=== PATIENT | male | born 1980 | race Caucasian/White ===

== ENCOUNTER 2018-02-16 19:09 | Inpatient (IN) ==
[2018-02-16] MEDS ORDERED: Morphine Sulfate Inj 8 MG/ML Vial IV.PUSH ONE (21:23)
[2018-02-16] MEDS ORDERED: Morphine Sulfate Inj 2 MG/ML Vial IV.PUSH ONE (21:47)
--- NOTE | 2018-02-16 22:44 | ED ---
HPI General Chief complaint: Abdominal Pain Stated complaint: side pain Time Seen by Provider: 02/16/18 20:36 History of Present Illness HPI narrative: Patient is a 38-year-old male presents emergency department for evaluation of epigastric pain, has a history of recurrent pancreatitis, he states he had a few beers as well as a shot a couple of days ago. States it feels very similar to his pancreatitis and is requesting pain medicine. He does endorse some nausea and nonbloody nonbilious emesis at home. States symptoms are moderate, for the past 24 hours, rapidly worsening, associated signs symptoms in context as above. Related Data Home Medications Medication Instructions Recorded Confirmed No Known Home Medications 02/16/18 02/16/18 Allergies Allergy/AdvReac Type Severity Reaction Status Date / Time No Known Allergies Allergy Unverified 02/16/18 21:23 Review of Systems ROS: all other systems reviewed are negative [facility] Family History Family History Other Hypertension Social History Social History Substance History: No History of Abuse Second Hand Smoke Exposure: Yes Smoking Status: Current every day smoker Tobacco Type: Cigarettes How Often Do You Have a Drink Containing Alcohol: Monthly or less Recent [facility] within the Last 8 Weeks: No Recent Out of Country Travel within the Last 8 Weeks: No Exam Narrative Exam Narrative: GENERAL: Well-developed well-nourished, no obvious distress. SKIN: Focused skin assessment warm/dry. HEAD: Atraumatic. Normocephalic. EYES: Pupils equal and round. No scleral icterus. No injection or drainage. ENT: No nasal bleeding or discharge. Mucous membranes pink and moist. NECK: Trachea midline. No JVD. CARDIOVASCULAR: Regular rate and rhythm. No murmur appreciated. RESPIRATORY: No accessory muscle use. Clear to auscultation. Breath sounds equal bilaterally. GASTROINTESTINAL: Abdomen soft, mildly tender throughout all 4 quadrants, worse in the epigastric region, no rebound no percussive tenderness. Negative table bump sign, nondistended. Hepatic and splenic margins not palpable. MUSCULOSKELETAL: No obvious deformities. No clubbing. No cyanosis. No edema. NEUROLOGICAL: Awake and alert. No obvious cranial nerve deficits. Motor grossly within normal limits. Normal speech. PSYCHIATRIC: Appropriate mood and affect; insight and judgment normal. Course Initial Documented Vital Signs Temperature 99.2 F 02/16/18 19:49 Pulse Rate 78 10/01/18 19:49 Respiratory Rate 16 02/16/18 19:49 Blood Pressure 159/94 H 02/16/18 19:49 Pulse Oximetry 98 02/16/18 19:49 Last Documented Vital Signs Temperature 98.8 F 02/19/18 12:00 Pulse Rate 97 H 02/19/18 12:00 Respiratory Rate 20 02/19/18 12:00 Blood Pressure 136/93 H 02/19/18 12:00 Pulse Oximetry 95 02/19/18 12:00 Sign Out Sign Out Data: Patient Sign Out occurred on 02/16/18 at 23:08. Patient's care was discussed, and care was transferred from Maldonado Novak MD to Jenae Box MD. Sign Out Comment: Patient with a history of pancreatitis, follow-up the labs, reassess after medication. Last updated by Maldonado Novak MD at 02/16/18 22:45 Post-Handoff Eval: The patient's case was checked out to me at the conclusion of Dr. Novak shift. Please see his initial history and physical. The patient presented with abdominal pain and has acute pancreatitis with an elevated lipase. The patient is pending CT scan of the abdomen and pelvis results. The patient was also noted on his CBC to have a leukocytosis with a left shift. CT scan of the abdomen and pelvis showed evidence of pancreatitis, no pseudocyst or fluid collection or necrosis noted. The patient's case including history, pertinent physical examination findings, and laboratory studies were discussed with Dr. Mccullough. It was agreed that the patient would be admitted to the hospitalist service. The patient's results were discussed with the patient, including the plan of care. I explained that further testing and/ or monitoring is indicated based on the patient's history, examination, and/ or laboratory findings. Therefore, I recommended admission for additional evaluation. The patient expressed understanding and was agreeable with this plan. The patient was admitted to the hospital in guarded condition and sent to a bed under the care of the [facility] service. Medical Decision Making MDM Narrative Medical decision making narrative: Patient room to the emergency department, basic labs ordered, nausea medicine, morphine. A liter normal saline. Patient still with gallbladder, lipase is also pending. Patient be discussed with oncoming provider 2300 to follow-up labs and disposition patient properly peer Medical Screen Exam Complete: Yes Emergency Medical Condition: Yes Lab Data Result diagrams: 02/19/18 06:13 02/19/18 06:13 Lab Results 02/16/18 02/16/18 02/17/18 Range/Units 21:27 21:27 01:30 WBC 26.9 H (4.0-11.0) th/mm3 RBC 4.91 (4.50-5.90) mil/mm3 Hgb 15.1 (13.0-17.0) gm/dL Hct 43.5 (39.0-51.0) % MCV 88.6 (80.0-100.0) fL MCH 30.7 (27.0-34.0) pg MCHC 34.6 (32.0-36.0) % RDW 13.4 (11.6-17.2) % Plt Count 337 (150-450) th/mm3 MPV 8.5 (7.0-11.0) fL Neut % (Auto) 86.4 H (16.0-70.0) % Lymph % (Auto) 6.7 L (9.0-44.0) % Andrews % (Auto) 6.8 (0.0-8.0) % Eos % (Auto) 0.1 (0.0-4.0) % Baso % (Auto) 0.0 (0.0-2.0) % Neut # (Auto) 23.2 H (1.8-7.7) th/mm3 Lymph # (Auto) 1.8 (1.0-4.8) th/mm3 Andrews # (Auto) 1.8 H (0.0-0.9) th/mm3 Eos # (Auto) 0.0 (0.0-0.4) th/mm3 Baso # (Auto) 0.0 (0.0-0.2) th/mm3 WBC Differential . Differential Comment Auto diff final Sodium 140 (136-145) meq/L Potassium 3.8 (3.5-5.1) meq/L Chloride 105 (98-107) meq/L Carbon Dioxide 24.0 (21.0-32.0) meq/L Anion Gap 11 (5-15) meq/L BUN 14 (7-18) mg/dL Creatinine 0.97 (0.60-1.30) mg/dL Estimated GFR (>89) mL/min Random Glucose 112 H (74-106) mg/dL Hemoglobin A1c (4.3-6.0) % Calcium 9.1 (8.5-10.1) mg/dL Phosphorus (2.5-4.9) mg/dL Magnesium (1.5-2.5) mg/dL Total Bilirubin 0.4 (0.2-1.0) mg/dL AST 18 (15-37) U/L ALT 27 (12-78) U/L Alkaline Phosphatase 74 (45-117) U/L Ammonia (11-32) mcmol/L Total Protein 8.6 H (6.4-8.2) g/dL Albumin 4.6 (3.4-5.0) g/dL Triglycerides (42-150) mg/dL Cholesterol (120-200) mg/dL LDL Cholesterol, Calc (0-99) mg/dL HDL Cholesterol (40.0-60.0) mg/dL Cholesterol/HDL Ratio Ratio Amylase (25-115) U/L Lipase 20590 H (73-393) U/L TSH (0.358-3.740) uIU/mL Free T4 (0.76-1.46) ng/dL Urine Color Yellow (Yellw/Straw) Urine Clarity Clear (Clear) Urine pH 5.0 (5.0-8.5) Ur Specific [place] 1.049 H (1.002-1.035) Urine Protein Negative (Neg-Trace) mg/dL Urine Glucose (UA) Negative (Negative) mg/dL Urine Ketones Negative (Negative) mg/dL Urine Occult Blood Small H (Negative) Urine Nitrate Negative (Negative) Urine Bilirubin Negative (Negative) Urine Urobilinogen Less than 2 (Less than 2) mg/dL Ur Leukocyte Esterase Negative (Negative) Urine RBC 1 (0-3) /hpf Urine WBC Less than 1 (0-5) /hpf Hyaline Casts 1 (0-3) /lpf Urine Mucus Few H (Occasional) /lpf Micro UA Comment Culture not ind Ur Microscopic Review Not Reportable Urine Culture Comments Culture not ind 02/18/18 02/18/18 02/18/18 Range/Units 04:20 04:20 10:43 WBC 20.6 H (4.0-11.0) th/mm3 RBC 4.47 L (4.50-5.90) mil/mm3 Hgb 13.6 (13.0-17.0) gm/dL Hct 40.2 (39.0-51.0) % MCV 89.9 (80.0-100.0) fL MCH 30.4 (27.0-34.0) pg MCHC 33.9 (32.0-36.0) % RDW 13.6 (11.6-17.2) % Plt Count 278 (150-450) th/mm3 MPV 7.8 (7.0-11.0) fL Neut % (Auto) 80.2 H (16.0-70.0) % Lymph % (Auto) 9.6 (9.0-44.0) % Andrews % (Auto) 9.4 H (0.0-8.0) % Eos % (Auto) 0.6 (0.0-4.0) % Baso % (Auto) 0.2 (0.0-2.0) % Neut # (Auto) 16.5 H (1.8-7.7) th/mm3 Lymph # (Auto) 2.0 (1.0-4.8) th/mm3 Andrews # (Auto) 1.9 H (0.0-0.9) th/mm3 Eos # (Auto) 0.1 (0.0-0.4) th/mm3 Baso # (Auto) 0.0 (0.0-0.2) th/mm3 WBC Differential . Differential Comment Auto diff final Sodium 136 (136-145) meq/L Potassium 3.5 (3.5-5.1) meq/L Chloride 105 (98-107) meq/L Carbon Dioxide 24.9 (21.0-32.0) meq/L Anion Gap 6 (5-15) meq/L BUN 7 (7-18) mg/dL Creatinine 0.69 (0.60-1.30) mg/dL Estimated GFR Greater than 89 (>89) mL/min Random Glucose 111 H (74-106) mg/dL Hemoglobin A1c 5.4 (4.3-6.0) % Calcium 7.9 L D (8.5-10.1) mg/dL Phosphorus (2.5-4.9) mg/dL Magnesium (1.5-2.5) mg/dL Total Bilirubin (0.2-1.0) mg/dL AST (15-37) U/L ALT (12-78) U/L Alkaline Phosphatase (45-117) U/L Ammonia (11-32) mcmol/L Total Protein (6.4-8.2) g/dL Albumin (3.4-5.0) g/dL Triglycerides (42-150) mg/dL Cholesterol (120-200) mg/dL LDL Cholesterol, Calc (0-99) mg/dL HDL Cholesterol (40.0-60.0) mg/dL Cholesterol/HDL Ratio Ratio Amylase (25-115) U/L Lipase 3587 H (73-393) U/L TSH (0.358-3.740) uIU/mL Free T4 (0.76-1.46) ng/dL Urine Color (Yellw/Straw) Urine Clarity (Clear) Urine pH (5.0-8.5) Ur Specific [place] (1.002-1.035) Urine Protein (Neg-Trace) mg/dL Urine Glucose (UA) (Negative) mg/dL Urine Ketones (Negative) mg/dL Urine Occult Blood (Negative) Urine Nitrate (Negative) Urine Bilirubin (Negative) Urine Urobilinogen (Less than 2) mg/dL Ur Leukocyte Esterase (Negative) Urine RBC (0-3) /hpf Urine WBC (0-5) /hpf Hyaline Casts (0-3) /lpf Urine Mucus (Occasional) /lpf Micro UA Comment Ur Microscopic Review Urine Culture Comments 02/18/18 02/19/18 02/19/18 Range/Units 10:43 06:13 06:13 WBC 19.5 H (4.0-11.0) th/mm3 RBC 4.13 L (4.50-5.90) mil/mm3 Hgb 12.6 L (13.0-17.0) gm/dL Hct 37.1 L (39.0-51.0) % MCV 89.7 (80.0-100.0) fL MCH 30.5 (27.0-34.0) pg MCHC 34.0 (32.0-36.0) % RDW 13.4 (11.6-17.2) % Plt Count 267 (150-450) th/mm3 MPV 7.8 (7.0-11.0) fL Neut % (Auto) 81.6 H (16.0-70.0) % Lymph % (Auto) 7.5 L (9.0-44.0) % Andrews % (Auto) 9.7 H (0.0-8.0) % Eos % (Auto) 1.0 (0.0-4.0) % Baso % (Auto) 0.2 (0.0-2.0) % Neut # (Auto) 15.9 H (1.8-7.7) th/mm3 Lymph # (Auto) 1.5 (1.0-4.8) th/mm3 Andrews # (Auto) 1.9 H (0.0-0.9) th/mm3 Eos # (Auto) 0.2 (0.0-0.4) th/mm3 Baso # (Auto) 0.0 (0.0-0.2) th/mm3 WBC Differential . Differential Comment Auto diff final Sodium 138 (136-145) meq/L Potassium 3.6 (3.5-5.1) meq/L Chloride 105 (98-107) meq/L Carbon Dioxide 23.8 (21.0-32.0) meq/L Anion Gap 9 (5-15) meq/L BUN 7 (7-18) mg/dL Creatinine 0.66 (0.60-1.30) mg/dL Estimated GFR Greater than 89 (>89) mL/min Random Glucose 95 (74-106) mg/dL Hemoglobin A1c (4.3-6.0) % Calcium 8.1 L (8.5-10.1) mg/dL Phosphorus 1.9 L (2.5-4.9) mg/dL Magnesium 1.9 (1.5-2.5) mg/dL Total Bilirubin 1.1 H (0.2-1.0) mg/dL AST 13 L (15-37) U/L ALT 16 (12-78) U/L Alkaline Phosphatase 56 (45-117) U/L Ammonia (11-32) mcmol/L Total Protein 7.1 D (6.4-8.2) g/dL Albumin 3.2 L (3.4-5.0) g/dL Triglycerides 134 (42-150) mg/dL Cholesterol 107 L (120-200) mg/dL LDL Cholesterol, Calc 56 (0-99) mg/dL HDL Cholesterol 24.6 L (40.0-60.0) mg/dL Cholesterol/HDL Ratio 4.34 Ratio Amylase 316 H (25-115) U/L Lipase 1852 H (73-393) U/L TSH 1.610 (0.358-3.740) uIU/mL Free T4 1.11 1.21 (0.76-1.46) ng/dL Urine Color (Yellw/Straw) Urine Clarity (Clear) Urine pH (5.0-8.5) Ur Specific [place] (1.002-1.035) Urine Protein (Neg-Trace) mg/dL Urine Glucose (UA) (Negative) mg/dL Urine Ketones (Negative) mg/dL Urine Occult Blood (Negative) Urine Nitrate (Negative) Urine Bilirubin (Negative) Urine Urobilinogen (Less than 2) mg/dL Ur Leukocyte Esterase (Negative) Urine RBC (0-3) /hpf Urine WBC (0-5) /hpf Hyaline Casts (0-3) /lpf Urine Mucus (Occasional) /lpf Micro UA Comment Ur Microscopic Review Urine Culture Comments 02/19/18 Range/Units 06:13 WBC (4.0-11.0) th/mm3 RBC (4.50-5.90) mil/mm3 Hgb (13.0-17.0) gm/dL Hct (39.0-51.0) % MCV (80.0-100.0) fL MCH (27.0-34.0) pg MCHC (32.0-36.0) % RDW (11.6-17.2) % Plt Count (150-450) th/mm3 MPV (7.0-11.0) fL Neut % (Auto) (16.0-70.0) % Lymph % (Auto) (9.0-44.0) % Andrews % (Auto) (0.0-8.0) % Eos % (Auto) (0.0-4.0) % Baso % (Auto) (0.0-2.0) % Neut # (Auto) (1.8-7.7) th/mm3 Lymph # (Auto) (1.0-4.8) th/mm3 Andrews # (Auto) (0.0-0.9) th/mm3 Eos # (Auto) (0.0-0.4) th/mm3 Baso # (Auto) (0.0-0.2) th/mm3 WBC Differential Differential Comment Sodium (136-145) meq/L Potassium (3.5-5.1) meq/L Chloride (98-107) meq/L Carbon Dioxide (21.0-32.0) meq/L Anion Gap (5-15) meq/L BUN (7-18) mg/dL Creatinine (0.60-1.30) mg/dL Estimated GFR (>89) mL/min Random Glucose (74-106) mg/dL Hemoglobin A1c (4.3-6.0) % Calcium (8.5-10.1) mg/dL Phosphorus (2.5-4.9) mg/dL Magnesium (1.5-2.5) mg/dL Total Bilirubin (0.2-1.0) mg/dL AST (15-37) U/L ALT (12-78) U/L Alkaline Phosphatase (45-117) U/L Ammonia 43 H (11-32) mcmol/L Total Protein (6.4-8.2) g/dL Albumin (3.4-5.0) g/dL Triglycerides (42-150) mg/dL Cholesterol (120-200) mg/dL LDL Cholesterol, Calc (0-99) mg/dL HDL Cholesterol (40.0-60.0) mg/dL Cholesterol/HDL Ratio Ratio Amylase (25-115) U/L Lipase (73-393) U/L TSH (0.358-3.740) uIU/mL Free T4 (0.76-1.46) ng/dL Urine Color (Yellw/Straw) Urine Clarity (Clear) Urine pH (5.0-8.5) Ur Specific [place] (1.002-1.035) Urine Protein (Neg-Trace) mg/dL Urine Glucose (UA) (Negative) mg/dL Urine Ketones (Negative) mg/dL Urine Occult Blood (Negative) Urine Nitrate (Negative) Urine Bilirubin (Negative) Urine Urobilinogen (Less than 2) mg/dL Ur Leukocyte Esterase (Negative) Urine RBC (0-3) /hpf Urine WBC (0-5) /hpf Hyaline Casts (0-3) /lpf Urine Mucus (Occasional) /lpf Micro UA Comment Ur Microscopic Review Urine Culture Comments Imaging Data Radiologist's impression: Abdomen/Pelvis CT 02/16/18 23:07 CONCLUSION: 1. Findings consistent with small to moderate pancreatitis, Meet grade C. No evidence for pancreatic necrosis or focal drainable fluid collections. Discharge Plan Discharge Disposition Patient Disposition: 30 Still Patient Discharge Details Diagnosis: Acute pancreatitis Physicians Team ED Provider: Jenae Box Primary Care Provider: Primary Care Karen Ruvalcaba Attending Provider: Lucho Coronel Status ED Status: Left Department Discharge Information Discharge Date/Time: 02/17/18 02:36
[2018-02-16 22:47] LABS: Eos % (Auto) 0.1 % (0.0-4.0); Hematocrit 43.5 % (39.0-51.0); Hemoglobin 15.1 gm/dL (13.0-17.0); Lymph # (Auto) 1.8 th/mm3 (1.0-4.8); Lymph % (Auto) 6.7 % (9.0-44.0); Mean Corpuscular HGB Conc 34.6 % (32.0-36.0); Mean Corpuscular Hemoglobin 30.7 pg (27.0-34.0); Mean Corpuscular Volume 88.6 fL (80.0-100.0); Mean Platelet Volume 8.5 fL (7.0-11.0); Mono # (Auto) 1.8 th/mm3 (0.0-0.9); Mono % (Auto) 6.8 % (0.0-8.0); Neut # (Auto) 23.2 th/mm3 (1.8-7.7); Neut % (Auto) 86.4 % (16.0-70.0); Platelet Count 337 th/mm3 (150-450); Red Blood Count 4.91 mil/mm3 (4.50-5.90); Red Cell Distribution Width 13.4 % (11.6-17.2); White Blood Count 26.9 th/mm3 (4.0-11.0)
[2018-02-16 23:03] LABS: Albumin 4.6 g/dL (3.4-5.0); Anion Gap 11 meq/L (5-15); Aspartate Aminotransferase 18 U/L (15-37); Blood Urea Nitrogen 14 mg/dL (7-18); Calcium 9.1 mg/dL (8.5-10.1); Chloride 105 meq/L (98-107); Glucose,Random 112 mg/dL (74-106); Potassium 3.8 meq/L (3.5-5.1); Sodium 140 meq/L (136-145)
[2018-02-16 23:04] LABS: Alanine Aminotransferase 27 U/L (12-78)
[2018-02-16 23:07] LABS: Alkaline Phosphatase 74 U/L (45-117); Lipase 14831 U/L (73-393); Total Protein 8.6 g/dL (6.4-8.2)
[2018-02-17] MEDS ORDERED: HYDROmorphone PF Inj 2 MG/ML Vial IV.PUSH ONE (00:20)
--- NOTE | 2018-02-17 00:30 | CT ---
EXAM DATE: 02/16/2018 11:12 PM EDT AGE/SEX: 38 years / Male INDICATIONS: Epigastric pain. CLINICAL DATA: This is the patient's initial encounter. Patient reports that signs and symptoms have been present for 1 day and indicates a pain score of 10/10. MEDICAL/SURGICAL HISTORY: Pancreatitis. None. ORAL CONTRAST: No oral contrast ingested. RADIATION DOSE: 15.21 CTDI (mGy) COMPARISON: No prior exams available for comparison. TECHNIQUE: Multiple contiguous axial images were obtained through the abdomen and pelvis following b olus infusion of 80 ml Omnipaque 350 (iohexol) nonionic water-soluble contrast as a single exam dos e. No oral contrast ingested. Using automated exposure control and adjustment of the mA and/or kV ac cording to patient size, radiation dose was kept as low as reasonably achievable to obtain optimal di agnostic quality images. DICOM format image data is available electronically for review and comparis on. FINDINGS: LOWER LUNGS: Mild groundglass opacities at the lung bases. LIVER: The liver has a homogeneous density without space-occupying lesion. There is no dilation of t he biliary tree. No radiopaque gallstones or ductal dilatation. SPLEEN: Homogeneous density without enlargement. PANCREAS: Prominent peripancreatic inflammatory change/fluid. Pancreas enhances uniformly. There are no focal drainable fluid collections at this time. KIDNEYS: Kidneys demonstrate symmetrical enhancement and are symmetrical in size without evidence fo r radiopaque renal calculi or hydronephrosis. Small subcentimeter cystic lesions bilaterally are too small to fully characterize. ADRENAL GLANDS: Unremarkable. AORTA: Nayeli-aneurysmal. BOWEL/MESENTERY: The bowel loops are grossly unremarkable. The cecum and sigmoid colon have a diana l configuration. Appendix is normal. No free air or pneumatosis. ABDOMINAL WALL: Intact. RETROPERITONEUM: No evidence of adenopathy in the retrocrural, para-aortic, or deep pelvic regions. BLADDER: Contours are smooth. REPRODUCTIVE: No abnormal masses or calcifications seen. BONY STRUCTURES: Unremarkable. CONCLUSION: 1. Findings consistent with small to moderate pancreatitis, Meet grade C. No evidence for pancr eatic necrosis or focal drainable fluid collections. Electronically signed by: Mando Jung MD 02/17/2018 12:29 AM EDT
[2018-02-17] MEDS: Sod Chloride 0.9% Inj 1,000 ML IV.SIG SCH (00:48)
[2018-02-17] MEDS ORDERED: Bisacodyl 10 MG Supp RECTAL PRN (01:02)
[2018-02-17] MEDS ORDERED: Acetaminophen 325 MG Tablet PO PRN (01:02)
--- NOTE | 2018-02-17 01:28 | P.HP ---
History of Present Illness Service: [facility] Primary Care Physician: No Primary Care Physician History of Present Illness: 38-year-old male with a past medical history of previous pancreatitis presents to the emergency department for evaluation of epigastric pain. The patient reports that the pain started approximately 5:30 PM yesterday evening when he was driving over from [email or web address]. He endorses associated nausea and vomiting. Denies any fever/chills. No diarrhea. No chest pain or shortness of breath. Inpatient Certification: I certify that the inpatient services were ordered in accordance with Medicare regulations governing the order. This includes certification that hospital inpatient services are reasonable and necessary and in the case of services not specified as inpatient-only under 42 CFR 419.22(n), that they are appropriately provided as inpatient services in accordance to with the 2-midnight benchmark under 43 CFR 412.3(e) Estimated Total Length of Stay (Days): 2 Plans for Post Hospital Care: Home Review of Systems All other systems reviewed negative except as stated in HPI [facility] - History History Provided By: Patient, Family Member - Medical History Medical History: Medical History (Last Reviewed 02/16/18 @ 23:53 by Jany Molina) Pancreatitis - Surgical History Surgical History: Surgical History (Last Reviewed 02/16/18 @ 23:53 by Jany Molina) No history of previous surgery - Family History Family History: Family History (Last Updated 02/17/18 @ 01:24 by Jordyn Mccullough MD) Other Hypertension - Tobacco History Second Hand Smoke Exposure: Yes Tobacco Use In Past 30 Days: Yes Smoking Status: Current every day smoker Tobacco Type: Cigarettes - Alcohol History How Often Do You Have a Drink Containing Alcohol: 2 to 4 times a month - Substance Use History Substance History: No History of Abuse - Travel History Recent Travel in the [place] Within the Last 8 Weeks: No Recent Travel Out of the Country Within the Last 8 Weeks: No - Immunization History Tetanus Immunization: <5 Years Hx Influenza Vaccine This Season: No Medications and Allergies Active Medications: Active Medications Acetaminophen (Tylenol) 650 mg PO Q4H PRN PRN Reason: Temp > 100.4/BENJAMIN Bisacodyl (Dulcolax Supp) 10 mg RECTAL DAILY PRN PRN Reason: SEVERE CONSITIPATION Hydromorphone HCl (Dilaudid Pf Inj) 0.5 mg IV.PUSH Q4H PRN PRN Reason: pain > 4 Sodium Chloride (Ns Inj) 1,000 mls @ 0 mls/hr IV.SIG BOLUS ANGELINA Last Admin: 02/17/18 00:48 Dose: 999 mls/hr Sodium Chloride (Ns Inj) 1,000 mls @ 125 mls/hr IV.CONT .Q8H ANGELINA Ondansetron HCl (Zofran Inj) 4 mg IV.PUSH Q6H PRN PRN Reason: NAUSEA OR VOMITING Sennosides (Senokot) 17.2 mg PO Q12H PRN PRN Reason: Moderate Constipation Sodium Chloride (Ns Flush) 2 ml IV.FLUSH PRN PRN PRN Reason: FLUSH AFTER USING IV ACCESS Allergies Allergy/AdvReac Type Severity Reaction Status Date / Time No Known Allergies Allergy Unverified 02/16/18 21:23 Home Medications Medication Instructions Recorded Confirmed Type No Known Home Medications 02/16/18 02/16/18 History Exam Vital signs: Vital Signs 02/16/18 19:49 02/17/18 00:48 Temperature 99.2 F Pulse Rate 78 86 Respiratory Rate 16 28 H Blood Pressure 159/94 H 169/112 H Pulse Oximetry 98 96 Intake & Output 02/16/18 02/16/18 02/17/18 06:59 18:59 06:59 Weight 98.883 kg Narrative: Gen.: No acute distress Head: Normocephalic. Atraumatic. EENT: Pupils equal round and reactive to light. Nose without drainage. Airway intact. Throat without injection. Cardiovascular: Regular rate and rhythm. No murmurs, rubs or gallops. Respiratory: Lungs clear to auscultation bilaterally. No wheezes or rhonchi. Abdomen: Soft, tender to palpation in the epigastrium, nondistended. No peritoneal signs. Musculoskeletal: No gross deformities. No edema. Skin: No obvious rashes or erythema. Neuro: Sensory and motor grossly intact. Cranial nerves II through XII grossly intact. Results - Labs CBC & Chem 7: 02/16/18 21:27 02/16/18 21:27 Labs: Laboratory Results - last 24 hr 02/16/18 02/16/18 21:27 21:27 WBC 26.9 H RBC 4.91 Hgb 15.1 Hct 43.5 MCV 88.6 MCH 30.7 MCHC 34.6 RDW 13.4 Plt Count 337 MPV 8.5 Neut % (Auto) 86.4 H Lymph % (Auto) 6.7 L Worth % (Auto) 6.8 Eos % (Auto) 0.1 Baso % (Auto) 0.0 Neut # (Auto) 23.2 H Lymph # (Auto) 1.8 [place] # (Auto) 1.8 H Eos # (Auto) 0.0 Baso # (Auto) 0.0 WBC Differential . Differential Comment Auto diff final Sodium 140 Potassium 3.8 Chloride 105 Carbon Dioxide 24.0 Anion Gap 11 BUN 14 Creatinine 0.97 Random Glucose 112 H Calcium 9.1 Total Bilirubin 0.4 AST 18 ALT 27 Alkaline Phosphatase 74 Total Protein 8.6 H Albumin 4.6 Lipase 46705 H - Imaging Impressions Abdomen/Pelvis CT 02/16/18 23:07 CONCLUSION: 1. Findings consistent with small to moderate pancreatitis, Meet grade C. No evidence for pancreatic necrosis or focal drainable fluid collections. Caprini VTE Risk Assessment Caprini VTE Risk Assessment: No/Low Risk (score <= 1) Caprini Risk Assessment Model: Point Value = 1 Point Value = 2 Point Value = 3 Point Value = 5 Age 41-60 Minor surgery BMI > 25 kg/m2 Swollen legs Varicose veins or History of unexplained or recurrent spontaneous Oral contraceptives or hormone replacement Sepsis (< 1 month) Serious lung disease, including pneumonia (< 1 month) Abnormal pulmonary function Acute myocardial infarction Congestive heart failure (< 1 month) History of inflammatory bowel disease Medical patient at bed rest Age 61-74 Arthroscopic surgery Major open surgery (> 45 min) Laparoscopic surgery (> 45 min) Malignancy Confined to bed (> 72 hours) Immobilizing plaster cast Central venous access Age >= 75 History of VTE Family history of VTE Factor V Leiden Prothrombin [id number] Lupus anticoagulant Anticardiolipin antibodies Elevated serum homocysteine Heparin-induced thrombocytopenia Other congenital or acquired thrombophilia Stroke (< 1 month) Elective arthroplasty Hip, pelvis, or leg fracture Acute spinal cord injury (< 1 month) Prophylaxis Regimen: Total Risk Factor Score Risk Level Prophylaxis Regimen 0-1 Low Early ambulation 2 Moderate Order ONE of the following: *Sequential Compression Device (SCD) *Heparin 5000 units SQ BID 3-4 Higher Order ONE of the following medications: *Heparin 5000 units SQ TID *Enoxaparin/Lovenox 40 mg SQ daily (WT < 150 kg, CrCl > 30 mL/min) *Enoxaparin/Lovenox 30 mg SQ daily (WT < 150 kg, CrCl > 10-29 mL/min) *Enoxaparin/Lovenox 30 mg SQ BID (WT < 150 kg, CrCl > 30 mL/min) AND/OR *Sequential Compression Device (SCD) 5 or more Highest Order ONE of the following medications: *Heparin 5000 units SQ TID (Preferred with Epidurals) *Enoxaparin/Lovenox 40 mg SQ daily (WT < 150 kg, CrCl > 30 mL/min) *Enoxaparin/Lovenox 30 mg SQ daily (WT < 150 kg, CrCl > 10-29 mL/min) *Enoxaparin/Lovenox 30 mg SQ BID (WT < 150 kg, CrCl > 30 mL/min) AND *Sequential Compression Device (SCD) Assessment and Plan - Plan Assessment/plan: 1. Pancreatitis CT of the abdomen/pelvis consistent with mild to moderate pancreatitis without evidence of pseudocyst Lipase greater than 14,000 N.p.o. IV fluids Dilaudid for pain FEN N.p.o. Electrolytes: Monitor and replete as needed NS at 175 cc/hour
[2018-02-17] MEDS: Sod Chloride 0.9% Inj 1,000 ML IV.CONT SCH ×4 (01:37→21:02)
[2018-02-17 02:25] LABS: Bilirubin,Urine Negative (Negative); Clarity,Urine Clear (Clear); Color,Urine Yellow (Yellw/Straw); Glucose,Urine (UA) Negative (Negative); Hyaline Casts,Urine 1 /lpf (0-3); Leukocyte Esterase,Urine Negative (Negative); Mucus,Urine Few /lpf (Occasional); Nitrite,Urine Negative (Negative); Specific Gravity,Urine 1.049 (1.002-1.035)
[2018-02-17] MEDS: HYDROmorphone PF Inj 2 MG/ML Vial IV.PUSH PRN ×5 (04:35→20:16)
[2018-02-18] MEDS: HYDROmorphone PF Inj 2 MG/ML Vial IV.PUSH PRN ×6 (00:25→20:28)
[2018-02-18] MEDS: Sod Chloride 0.9% Inj 1,000 ML IV.CONT SCH ×6 (00:28→22:12)
[2018-02-18 04:52] LABS: Baso % (Auto) 0.2 % (0.0-2.0); Eos # (Auto) 0.1 th/mm3 (0.0-0.4); Eos % (Auto) 0.6 % (0.0-4.0); Hematocrit 40.2 % (39.0-51.0); Hemoglobin 13.6 gm/dL (13.0-17.0); Lymph % (Auto) 9.6 % (9.0-44.0); Mean Corpuscular HGB Conc 33.9 % (32.0-36.0); Mean Corpuscular Hemoglobin 30.4 pg (27.0-34.0); Mean Corpuscular Volume 89.9 fL (80.0-100.0); Mean Platelet Volume 7.8 fL (7.0-11.0); Mono # (Auto) 1.9 th/mm3 (0.0-0.9); Mono % (Auto) 9.4 % (0.0-8.0); Neut # (Auto) 16.5 th/mm3 (1.8-7.7); Neut % (Auto) 80.2 % (16.0-70.0); Platelet Count 278 th/mm3 (150-450); Red Blood Count 4.47 mil/mm3 (4.50-5.90); Red Cell Distribution Width 13.6 % (11.6-17.2); White Blood Count 20.6 th/mm3 (4.0-11.0)
[2018-02-18 05:19] LABS: Anion Gap 6 meq/L (5-15); Blood Urea Nitrogen 7 mg/dL (7-18); Calcium 7.9 mg/dL (8.5-10.1); Carbon Dioxide 24.9 meq/L (21.0-32.0); Chloride 105 meq/L (98-107); Glomerular Filtration Rate Greater Than 89 mL/min (>89); Glucose,Random 111 mg/dL (74-106); Lipase 3587 U/L (73-393); Potassium 3.5 meq/L (3.5-5.1); Sodium 136 meq/L (136-145)
--- NOTE | 2018-02-18 13:24 | P.PNIM ---
Subjective Interval history: 38-year-old male with a past medical history of previous pancreatitis presents to the emergency department for evaluation of epigastric pain. The patient reports that the pain started approximately 5:30 PM yesterday evening when he was driving over from [employer]. He endorses associated nausea and vomiting. Denies any fever/chills. No diarrhea. No chest pain or shortness of breath. Physical Exam Vital signs: Vital Signs 02/17/18 13:14 02/17/18 16:00 02/17/18 17:08 Temperature 99.4 F Pulse Rate 104 H Respiratory Rate 18 18 18 Blood Pressure 140/80 Pulse Oximetry 95 02/17/18 20:00 02/17/18 21:02 02/18/18 00:00 Temperature 99.1 F 100.1 F H Pulse Rate 88 91 H Respiratory Rate 17 18 18 Blood Pressure 139/80 143/80 H Pulse Oximetry 94 L 95 02/18/18 00:55 02/18/18 04:54 02/18/18 08:00 Temperature 98.5 F Pulse Rate 86 Respiratory Rate 19 18 16 Blood Pressure 134/73 Pulse Oximetry 92 L 02/18/18 12:00 Temperature 98.5 F Pulse Rate 86 Respiratory Rate 16 Blood Pressure 147/86 H Pulse Oximetry 95 Intake & Output 02/17/18 02/18/18 02/18/18 18:59 06:59 18:59 Intake Total 1999 / 1999 3000 / 3000 1000 / 1000 Balance 2000 / 1999 3000 / 3000 1000 / 1000 Intake: IV 2000 / 1999 3000 / 3000 1000 / 1000 NS Inj 1,000 ML @ 175 mls/hr IV 2000 / 1999 3000 / 3000 1000 / 1000 .CONT .Q5H43M COUNTS INCLUDE 234 BEDS AT THE [facility] Rx#:[id number] Oral 0 / 0 Other: # Voids 4 3 Date of Last Bowel Movement 02/16/18 # Bowel Movements 0 Narrative: Gen.: No acute distress Head: Normocephalic. Atraumatic. EENT: Pupils equal round and reactive to light. Nose without drainage. Airway intact. Throat without injection. Cardiovascular: Regular rate and rhythm. No murmurs, rubs or gallops. Respiratory: Lungs clear to auscultation bilaterally. No wheezes or rhonchi. Abdomen: Soft, tender to palpation in the epigastrium, nondistended. No peritoneal signs. Musculoskeletal: No gross deformities. No edema. Skin: No obvious rashes or erythema. Neuro: Sensory and motor grossly intact. Cranial nerves II through XII grossly intact. Results - Labs CBC & Chem 7: 02/18/18 04:20 02/18/18 04:20 Laboratory Results - last 24 hr 02/18/18 02/18/18 02/18/18 04:20 04:20 10:43 WBC 20.6 H RBC 4.47 L Hgb 13.6 Hct 40.2 MCV 89.9 MCH 30.4 MCHC 33.9 RDW 13.6 Plt Count 278 MPV 7.8 Neut % (Auto) 80.2 H Lymph % (Auto) 9.6 [place] % (Auto) 9.4 H Eos % (Auto) 0.6 Baso % (Auto) 0.2 Neut # (Auto) 16.5 H Lymph # (Auto) 2.0 [place] # (Auto) 1.9 H Eos # (Auto) 0.1 Baso # (Auto) 0.0 WBC Differential . Differential Comment Auto diff final Sodium 136 Potassium 3.5 Chloride 105 Carbon Dioxide 24.9 Anion Gap 6 BUN 7 Creatinine 0.69 Estimated GFR Greater than 89 Random Glucose 111 H Calcium 7.9 L D Lipase 3587 H Free T4 1.11 - Imaging ITS Impressions Abdomen/Pelvis CT 02/16/18 23:07 CONCLUSION: 1. Findings consistent with small to moderate pancreatitis, Meet grade C. No evidence for pancreatic necrosis or focal drainable fluid collections. - Procedures NONE Assessment and Plan - Plan 1. Pancreatitis CT of the abdomen/pelvis consistent with mild to moderate pancreatitis without evidence of pseudocyst Lipase greater than 14,000 N.p.o. IV fluids Dilaudid for pain FEN N.p.o. Electrolytes: Monitor and replete as needed NS at 175 cc/hour Code Status: FULL CODE Discussed Condition With: RN AND PT AND CM Discharge Planning: ONCE TOLERATING DIET
[2018-02-18 16:30] LABS: Hemoglobin A1c 5.4 % (4.3-6.0)
[2018-02-18] MEDS: Heparin - SQ 10,000 UNITS/ML Vial SQ SCH (17:01)
[2018-02-18] MEDS: Famotidine PF Inj 20 MG/2 ML Vial IV.PUSH SCH ×2 (17:02→20:29)
[2018-02-19] MEDS: HYDROmorphone PF Inj 2 MG/ML Vial IV.PUSH PRN ×6 (00:32→22:25)
[2018-02-19] MEDS: Heparin - SQ 10,000 UNITS/ML Vial SQ SCH ×2 (01:45→15:08)
[2018-02-19] MEDS: Sod Chloride 0.9% Inj 1,000 ML IV.CONT SCH ×5 (04:11→22:25)
[2018-02-19 07:24] LABS: Baso % (Auto) 0.2 % (0.0-2.0); Eos # (Auto) 0.2 th/mm3 (0.0-0.4); Hematocrit 37.1 % (39.0-51.0); Hemoglobin 12.6 gm/dL (13.0-17.0); Lymph # (Auto) 1.5 th/mm3 (1.0-4.8); Lymph % (Auto) 7.5 % (9.0-44.0); Mean Corpuscular Hemoglobin 30.5 pg (27.0-34.0); Mean Corpuscular Volume 89.7 fL (80.0-100.0); Mean Platelet Volume 7.8 fL (7.0-11.0); Mono # (Auto) 1.9 th/mm3 (0.0-0.9); Mono % (Auto) 9.7 % (0.0-8.0); Neut # (Auto) 15.9 th/mm3 (1.8-7.7); Neut % (Auto) 81.6 % (16.0-70.0); Platelet Count 267 th/mm3 (150-450); Red Blood Count 4.13 mil/mm3 (4.50-5.90); Red Cell Distribution Width 13.4 % (11.6-17.2); White Blood Count 19.5 th/mm3 (4.0-11.0)
[2018-02-19 07:51] LABS: Alanine Aminotransferase 16 U/L (12-78); Albumin 3.2 g/dL (3.4-5.0); Alkaline Phosphatase 56 U/L (45-117); Anion Gap 9 meq/L (5-15); Aspartate Aminotransferase 13 U/L (15-37); Blood Urea Nitrogen 7 mg/dL (7-18); Calcium 8.1 mg/dL (8.5-10.1); Carbon Dioxide 23.8 meq/L (21.0-32.0); Chloride 105 meq/L (98-107); Chol/HDL Ratio 4.34 Ratio; Cholesterol 107 mg/dL (120-200); Free T4 (Free Thyroxine) 1.21 ng/dL (0.76-1.46); Glomerular Filtration Rate Greater Than 89 mL/min (>89); Glucose,Random 95 mg/dL (74-106); HDL Cholesterol 24.6 mg/dL (40.0-60.0); LDL Cholesterol,Calculated 56 mg/dL (0-99); Lipase 1852 U/L (73-393); Magnesium 1.9 mg/dL (1.5-2.5); Phosphorus 1.9 mg/dL (2.5-4.9); Potassium 3.6 meq/L (3.5-5.1); Sodium 138 meq/L (136-145); Total Protein 7.1 g/dL (6.4-8.2); Triglycerides 134 mg/dL (42-150)
[2018-02-19 07:52] LABS: Amylase 316 U/L (25-115)
[2018-02-19] MEDS: Famotidine PF Inj 20 MG/2 ML Vial IV.PUSH SCH ×2 (08:38→20:48)
--- NOTE | 2018-02-19 14:24 | P.PN ---
Subjective Interval history: Follow-up for acute pancreatitis, leukocytosis. Patient is currently resting in bed but complains of significant pain. His pain is not well controlled. He still does not feel like he can eat. He admits to drinking prior to onset of this acute pericarditis episode. He has a history of pancreatitis. Physical Exam Vital signs: Vital Signs 02/18/18 16:00 02/18/18 19:16 02/18/18 19:28 Temperature 98.7 F 98.1 F Pulse Rate 98 H 88 Respiratory Rate 16 18 18 Blood Pressure 160/91 H 133/77 Pulse Oximetry 93 L 95 02/18/18 20:59 02/18/18 23:35 02/18/18 23:50 Temperature 98.3 F Pulse Rate 83 Respiratory Rate 18 18 17 Blood Pressure 148/78 H Pulse Oximetry 94 L 02/19/18 01:02 02/19/18 04:42 02/19/18 08:00 Temperature 98.3 F Pulse Rate 85 Respiratory Rate 18 17 22 Blood Pressure 138/83 Pulse Oximetry 93 L 02/19/18 09:05 02/19/18 12:00 Temperature 98.8 F Pulse Rate 97 H Respiratory Rate 18 20 Blood Pressure 136/93 H Pulse Oximetry 95 Intake & Output 02/18/18 02/19/18 02/19/18 18:59 06:59 18:59 Intake Total 1999 1000 / 1000 Balance 1999 1000 / 1000 Intake: IV 1999 1000 / 1000 NS Inj 1,000 ML @ 175 mls/hr IV 1999 1000 / 1000 .CONT .Q5H43M [facility] Rx#:[id number] Oral 0 / 0 Other: # Voids 4 3 Date of Last Bowel Movement 02/16/18 02/16/18 # Bowel Movements 0 Narrative: Gen.: No acute distress Head: Normocephalic. Atraumatic. EENT: Pupils equal round and reactive to light. Nose without drainage. Airway intact. Throat without injection. Cardiovascular: Regular rate and rhythm. No murmurs, rubs or gallops. Respiratory: Lungs clear to auscultation bilaterally. No wheezes or rhonchi. Abdomen: Soft, tender to palpation in the epigastrium, nondistended. No peritoneal signs. Musculoskeletal: No gross deformities. No edema. Skin: No obvious rashes or erythema. Neuro: Sensory and motor grossly intact. Cranial nerves II through XII grossly intact. Results - Labs CBC & Chem 7: 02/19/18 06:13 02/19/18 06:13 Laboratory Results - last 24 hr 02/18/18 02/19/18 02/19/18 10:43 06:13 06:13 WBC 19.5 H RBC 4.13 L Hgb 12.6 L Hct 37.1 L MCV 89.7 MCH 30.5 MCHC 34.0 RDW 13.4 Plt Count 267 MPV 7.8 Neut % (Auto) 81.6 H Lymph % (Auto) 7.5 L [place] % (Auto) 9.7 H Eos % (Auto) 1.0 Baso % (Auto) 0.2 Neut # (Auto) 15.9 H Lymph # (Auto) 1.5 [place] # (Auto) 1.9 H Eos # (Auto) 0.2 Baso # (Auto) 0.0 WBC Differential . Differential Comment Auto diff final Sodium 138 Potassium 3.6 Chloride 105 Carbon Dioxide 23.8 Anion Gap 9 BUN 7 Creatinine 0.66 Estimated GFR Greater than 89 Random Glucose 95 Hemoglobin A1c 5.4 Calcium 8.1 L Phosphorus 1.9 L Magnesium 1.9 Total Bilirubin 1.1 H AST 13 L ALT 16 Alkaline Phosphatase 56 Ammonia Total Protein 7.1 D Albumin 3.2 L Triglycerides 134 Cholesterol 107 L LDL Cholesterol, Calc 56 HDL Cholesterol 24.6 L Cholesterol/HDL Ratio 4.34 Amylase 316 H Lipase 1852 H TSH 1.610 Free T4 1.21 02/19/18 06:13 WBC RBC Hgb Hct MCV MCH MCHC RDW Plt Count MPV Neut % (Auto) Lymph % (Auto) [place] % (Auto) Eos % (Auto) Baso % (Auto) Neut # (Auto) Lymph # (Auto) [place] # (Auto) Eos # (Auto) Baso # (Auto) WBC Differential Differential Comment Sodium Potassium Chloride Carbon Dioxide Anion Gap BUN Creatinine Estimated GFR Random Glucose Hemoglobin A1c Calcium Phosphorus Magnesium Total Bilirubin AST ALT Alkaline Phosphatase Ammonia 43 H Total Protein Albumin Triglycerides Cholesterol LDL Cholesterol, Calc HDL Cholesterol Cholesterol/HDL Ratio Amylase Lipase TSH Free T4 - Procedures NONE Assessment and Plan - Plan On 02/16/2018, Mr. Mann, a 38-year-old male with a history of pancreatitis presented to the emergency department with epigastric pain. 2 days prior to this admission he had a few beers as well as other drinks. On admission his lipase was elevated to 14,831. Acute on chronic pancreatitis -Likely related to alcohol abuse. Patient is counseled. -He has received high-dose IV fluid at 175 cc/h. Will reduce IV fluid to 75 cc/h. -Pain is not well controlled. Will provide Percocet every 6 hours for pain 4 -6 and Dilaudid 1 mg every 4 hours for pain 7-10. -Full liquid diet if he can tolerated. -Use bowel regimen. Leukocytosis -Likely reactive. WBC count was 26.9 on admission. Currently 19.5 -CT abdomen pelvis did not show any evidence of necrosis. -However if patient continues to have significant pain and leukocytosis, repeat CT abdomen may be necessary. -CT abdomen pelvis is recommended in 48-72 hours (if needed) - NOT at the time of admission if clinical diagnosis is obvious. Full code. Heparin SQ.
[2018-02-19 17:49] LABS: Hemoglobin A1c 5.5 % (4.3-6.0)
[2018-02-19] MEDS: Sodium Chloride 0.9% 2 ML Flush BID IV.FLUSH SCH (20:48)
[2018-02-19] MEDS: Senna/Docusate Sodium 8.6/50 MG Tablet PO SCH (20:48)
[2018-02-19] MEDS: Sod Chloride 0.9% Inj 1,000 ML IV.SIG SCH (20:54)
[2018-02-20] MEDS: Heparin - SQ 10,000 UNITS/ML Vial SQ SCH ×2 (02:38→14:29)
[2018-02-20] MEDS: HYDROmorphone PF Inj 2 MG/ML Vial IV.PUSH PRN ×6 (02:39→22:30)
[2018-02-20 05:34] LABS: Baso # (Auto) 0.1 th/mm3 (0.0-0.2); Baso % (Auto) 0.3 % (0.0-2.0); Eos # (Auto) 0.2 th/mm3 (0.0-0.4); Eos % (Auto) 1.2 % (0.0-4.0); Hematocrit 35.7 % (39.0-51.0); Lymph # (Auto) 1.6 th/mm3 (1.0-4.8); Mean Corpuscular HGB Conc 33.7 % (32.0-36.0); Mean Corpuscular Hemoglobin 30.2 pg (27.0-34.0); Mean Corpuscular Volume 89.8 fL (80.0-100.0); Mean Platelet Volume 7.8 fL (7.0-11.0); Mono # (Auto) 1.7 th/mm3 (0.0-0.9); Mono % (Auto) 9.6 % (0.0-8.0); Neut % (Auto) 79.9 % (16.0-70.0); Platelet Count 304 th/mm3 (150-450); Red Blood Count 3.98 mil/mm3 (4.50-5.90); Red Cell Distribution Width 13.5 % (11.6-17.2); White Blood Count 17.5 th/mm3 (4.0-11.0)
[2018-02-20 05:55] LABS: Anion Gap 9 meq/L (5-15); Blood Urea Nitrogen 7 mg/dL (7-18); Calcium 8.5 mg/dL (8.5-10.1); Carbon Dioxide 26.3 meq/L (21.0-32.0); Chloride 104 meq/L (98-107); Glomerular Filtration Rate Greater Than 89 mL/min (>89); Potassium 3.4 meq/L (3.5-5.1); Sodium 139 meq/L (136-145)
[2018-02-20 06:12] LABS: Glucose,Random 36 mg/dL (74-106)
[2018-02-20] MEDS: Senna/Docusate Sodium 8.6/50 MG Tablet PO SCH ×2 (10:13→20:46)
[2018-02-20] MEDS: Famotidine PF Inj 20 MG/2 ML Vial IV.PUSH SCH ×2 (10:14→20:46)
[2018-02-20] MEDS: Sodium Chloride 0.9% 2 ML Flush BID IV.FLUSH SCH ×2 (10:19→20:46)
[2018-02-20] MEDS: Sod Chloride 0.9% Inj 1,000 ML IV.CONT SCH (10:20)
--- NOTE | 2018-02-20 16:21 | P.PNIM ---
Subjective Interval history: Patient says that pain continues but is improving. Denies any nausea. Has not had a bowel movement in several days. Physical Exam Vital signs: Vital Signs 02/19/18 19:59 02/19/18 21:28 02/20/18 00:00 Temperature 98.5 F 100.7 F H 98.3 F Pulse Rate 101 H 92 H Respiratory Rate 20 20 Blood Pressure 138/86 143/83 H Pulse Oximetry 95 95 02/20/18 00:37 02/20/18 04:00 02/20/18 08:00 Temperature 100 F H 99.3 F Pulse Rate 83 88 Respiratory Rate 15 20 14 Blood Pressure 124/68 125/88 Pulse Oximetry 95 94 L 02/20/18 12:00 Temperature 98.5 F Pulse Rate 81 Respiratory Rate 16 Blood Pressure 122/68 Pulse Oximetry Intake & Output 02/19/18 02/20/18 02/20/18 18:59 06:59 18:59 Intake Total 2600 / 2600 870 / 870 350 / 350 Balance 2600 / 2600 870 / 870 350 / 350 Weight 218 kg Intake: IV 1999 650 / 650 350 / 350 NS Inj 1,000 ML @ 75 mls/hr IV. 1999 CONT .[id number] [facility] Rx#:[id number] NS Inj 1,000 ML @ Wide Open IV. 650 / 650 350 / 350 SIG BOLUS [facility] Rx#:[id number] Oral 600 / 600 220 / 220 Other: # Voids 5 2 Date of Last Bowel Movement 02/16/18 02/16/18 02/19/18 # Bowel Movements 1 Narrative: GENERAL: Patient sitting up in bed. Appears comfortable. Alert and oriented x3. SKIN: Warm and dry. HEAD: Normocephalic. EYES: No scleral icterus. No injection or drainage. NECK: Supple, trachea midline. No JVD or lymphadenopathy. CARDIOVASCULAR: Regular rate and rhythm without murmurs, gallops, or rubs. RESPIRATORY: Breath sounds equal bilaterally. No accessory muscle use. GASTROINTESTINAL: Abdomen soft, tender to moderate palpation in the epigastrium. No rebound or guarding. Nondistended. MUSCULOSKELETAL: No cyanosis, or edema. BACK: Nontender without obvious deformity. No CVA tenderness. Results - Labs CBC & Chem 7: 02/20/18 04:54 02/20/18 04:54 Laboratory Results - last 24 hr 02/19/18 02/20/18 02/20/18 06:13 04:54 04:54 WBC 17.5 H RBC 3.98 L Hgb 12.0 L Hct 35.7 L MCV 89.8 MCH 30.2 MCHC 33.7 RDW 13.5 Plt Count 304 MPV 7.8 Neut % (Auto) 79.9 H Lymph % (Auto) 9.0 [place] % (Auto) 9.6 H Eos % (Auto) 1.2 Baso % (Auto) 0.3 Neut # (Auto) 14.0 H Lymph # (Auto) 1.6 [place] # (Auto) 1.7 H Eos # (Auto) 0.2 Baso # (Auto) 0.1 WBC Differential . Differential Comment Auto diff final Sodium 139 Potassium 3.4 L Chloride 104 Carbon Dioxide 26.3 Anion Gap 9 BUN 7 Creatinine 0.70 Estimated GFR Greater than 89 POC Glucose Random Glucose 36 L* Hemoglobin A1c 5.5 Calcium 8.5 02/20/18 06:16 WBC RBC Hgb Hct MCV MCH MCHC RDW Plt Count MPV Neut % (Auto) Lymph % (Auto) [place] % (Auto) Eos % (Auto) Baso % (Auto) Neut # (Auto) Lymph # (Auto) [place] # (Auto) Eos # (Auto) Baso # (Auto) WBC Differential Differential Comment Sodium Potassium Chloride Carbon Dioxide Anion Gap BUN Creatinine Estimated GFR POC Glucose 106 Random Glucose Hemoglobin A1c Calcium - Procedures NONE Assessment and Plan - Plan On 02/16/2018, Mr. Mann, a 38-year-old male with a history of pancreatitis presented to the emergency department with epigastric pain. 2 days prior to this admission he had a few beers as well as other drinks. On admission his lipase was elevated to 14,831. //Acute on chronic pancreatitis -Likely related to alcohol abuse. Patient is counseled. -He has received high-dose IV fluid at 175 cc/h. Will reduce IV fluid to 75 cc/h. -Pain is not well controlled. Will provide Percocet every 6 hours for pain 4 -6 and Dilaudid 1 mg every 4 hours for pain 7-10. -Full liquid diet if he can tolerated. -Use bowel regimen. = Continue IV fluids. Switch to LR. Increase fluid rate. Patient with some constipation. Will order laxatives. //Hypokalemia. 3.4. Will replace and monitor. //Leukocytosis -Likely reactive. WBC count was 26.9 on admission. Currently 19.5 -CT abdomen pelvis did not show any evidence of necrosis. -However if patient continues to have significant pain and leukocytosis, repeat CT abdomen may be necessary. -CT abdomen pelvis is recommended in 48-72 hours (if needed) - NOT at the time of admission if clinical diagnosis is obvious. -Pain is improving. No need for CT abdomen. Will increase IV fluids. Full code. Heparin SQ. Discussed Condition With: Patient, nurse
[2018-02-20] MEDS ORDERED: Thiamine Inj 100 MG in Sodium Chlor 0.9% Inj 100 ML IV.SIG ONE (18:00)
[2018-02-20] MEDS: Potassium Chlor 20 mEq Premix 20 MEQ/100 ML PIGGYBACK IV.SIG SCH ×2 (18:07→20:46)
[2018-02-20] MEDS: Potassium Chloride Inj 10 MEQ in Dextrose 5%/Lactated Ringer's 1,000 ML IV.CONT SCH (22:21)
[2018-02-21] MEDS: Heparin - SQ 10,000 UNITS/ML Vial SQ SCH ×2 (02:29→13:10)
[2018-02-21] MEDS: HYDROmorphone PF Inj 2 MG/ML Vial IV.PUSH PRN ×5 (02:30→20:44)
[2018-02-21] MEDS: Potassium Chloride Inj 10 MEQ in Dextrose 5%/Lactated Ringer's 1,000 ML IV.CONT SCH ×4 (02:34→21:07)
[2018-02-21 07:06] LABS: Baso % (Auto) 0.1 % (0.0-2.0); Eos # (Auto) 0.4 th/mm3 (0.0-0.4); Eos % (Auto) 2.6 % (0.0-4.0); Hematocrit 34.4 % (39.0-51.0); Hemoglobin 11.5 gm/dL (13.0-17.0); Lymph # (Auto) 1.8 th/mm3 (1.0-4.8); Mean Corpuscular HGB Conc 33.5 % (32.0-36.0); Mean Corpuscular Hemoglobin 30.4 pg (27.0-34.0); Mean Corpuscular Volume 90.8 fL (80.0-100.0); Mean Platelet Volume 7.7 fL (7.0-11.0); Mono # (Auto) 1.5 th/mm3 (0.0-0.9); Mono % (Auto) 10.5 % (0.0-8.0); Neut # (Auto) 10.4 th/mm3 (1.8-7.7); Neut % (Auto) 73.8 % (16.0-70.0); Platelet Count 319 th/mm3 (150-450); Red Blood Count 3.79 mil/mm3 (4.50-5.90); Red Cell Distribution Width 13.4 % (11.6-17.2); White Blood Count 14.2 th/mm3 (4.0-11.0)
[2018-02-21 07:29] LABS: Albumin 3.2 g/dL (3.4-5.0); Anion Gap 9 meq/L (5-15); Aspartate Aminotransferase 11 U/L (15-37); Blood Urea Nitrogen 6 mg/dL (7-18); Calcium 9.2 mg/dL (8.5-10.1); Carbon Dioxide 27.9 meq/L (21.0-32.0); Chloride 104 meq/L (98-107); Glomerular Filtration Rate Greater Than 89 mL/min (>89); Glucose,Random 101 mg/dL (74-106); Magnesium 2.1 mg/dL (1.5-2.5); Potassium 3.8 meq/L (3.5-5.1); Sodium 141 meq/L (136-145)
[2018-02-21 07:31] LABS: Alanine Aminotransferase 17 U/L (12-78); Phosphorus 2.9 mg/dL (2.5-4.9)
[2018-02-21 07:33] LABS: Alkaline Phosphatase 65 U/L (45-117); Total Protein 7.2 g/dL (6.4-8.2)
[2018-02-21] MEDS: Famotidine PF Inj 20 MG/2 ML Vial IV.PUSH SCH ×2 (09:00→20:44)
[2018-02-21] MEDS: Sodium Chloride 0.9% 2 ML Flush BID IV.FLUSH SCH ×2 (09:00→20:44)
[2018-02-21] MEDS: Senna/Docusate Sodium 8.6/50 MG Tablet PO SCH ×2 (11:58→20:46)
[2018-02-21] MEDS ORDERED: Senna/Docusate Sodium 8.6/50 MG Tablet PO ONE (18:47)
--- NOTE | 2018-02-21 18:50 | P.PNIM ---
Subjective Interval history: patient says he is feeling a little better today. Would like to advance diet to full to see how he does.he reports some constipation, would like laxative. Physical Exam Vital signs: Vital Signs 02/20/18 20:00 02/21/18 00:00 02/21/18 04:00 Temperature 98.2 F 98.3 F 97.7 F Pulse Rate 85 94 H 73 Respiratory Rate 20 20 20 Blood Pressure 158/92 H 126/73 131/83 Pulse Oximetry 96 95 97 02/21/18 08:00 02/21/18 12:00 02/21/18 16:00 Temperature 98.1 F 98.1 F 98.6 F Pulse Rate 88 87 81 Respiratory Rate 17 17 17 Blood Pressure 141/84 H 133/79 135/82 Pulse Oximetry 92 L 95 96 Intake & Output 02/20/18 02/21/18 02/21/18 18:59 06:59 18:59 Intake Total 1590 / 1590 1565 / 1565 1245 / 1245 Balance 1590 / 1590 1565 / 1565 1245 / 1245 Weight 218 kg Intake: IV 350 / 350 1105 / 1105 1005 / 1005 KCl Inj 10 MEQ In D5W/LR Inj 1, 1005 / 1005 1005 / 1005 000 ML @ 150 mls/hr IV.CONT . Q6H42M [facility] Rx#:[id number] KCl 20 mEq Premix Inj 20 meq In 100 / 100 100 ml @ 50 mls/hr IV.SIG Q2H [facility] Rx#:[id number] NS Inj 1,000 ML @ Wide Open IV. 350 / 350 SIG BOLUS [facility] Rx#:[id number] Oral 1240 / 1240 460 / 460 240 / 240 Other: # Voids 3 3 3 Date of Last Bowel Movement 02/19/18 02/19/18 # Bowel Movements 0 Narrative: GENERAL: Patient sitting up in bed. Appears comfortable. Alert and oriented x3. SKIN: Warm and dry. HEAD: Normocephalic. EYES: No scleral icterus. No injection or drainage. NECK: Supple, trachea midline. No JVD or lymphadenopathy. CARDIOVASCULAR: Regular rate and rhythm without murmurs, gallops, or rubs. RESPIRATORY: Breath sounds equal bilaterally. No accessory muscle use. GASTROINTESTINAL: Abdomen soft, tender to moderate palpation in the epigastrium , improved from yesterday. No rebound or guarding. Nondistended. MUSCULOSKELETAL: No cyanosis, or edema. BACK: Nontender without obvious deformity. No CVA tenderness. Results - Labs CBC & Chem 7: 02/21/18 05:49 02/21/18 05:49 Laboratory Results - last 24 hr 02/21/18 02/21/18 05:49 05:49 WBC 14.2 H RBC 3.79 L Hgb 11.5 L Hct 34.4 L MCV 90.8 MCH 30.4 MCHC 33.5 RDW 13.4 Plt Count 319 MPV 7.7 Neut % (Auto) 73.8 H Lymph % (Auto) 13.0 [place] % (Auto) 10.5 H Eos % (Auto) 2.6 Baso % (Auto) 0.1 Neut # (Auto) 10.4 H Lymph # (Auto) 1.8 [place] # (Auto) 1.5 H Eos # (Auto) 0.4 Baso # (Auto) 0.0 WBC Differential . Differential Comment Auto diff final Sodium 141 Potassium 3.8 Chloride 104 Carbon Dioxide 27.9 Anion Gap 9 BUN 6 L Creatinine 0.66 Estimated GFR Greater than 89 Random Glucose 101 Calcium 9.2 Phosphorus 2.9 D Magnesium 2.1 Total Bilirubin 0.6 Direct Bilirubin 0.2 Indirect Bilirubin 0.4 AST 11 L ALT 17 Alkaline Phosphatase 65 Total Protein 7.2 Albumin 3.2 L - Procedures NONE Assessment and Plan - Plan On 02/16/2018, Mr. Mann, a 38-year-old male with a history of pancreatitis presented to the emergency department with epigastric pain. 2 days prior to this admission he had a few beers as well as other drinks. On admission his lipase was elevated to 14,831. //Acute on chronic pancreatitis -Likely related to alcohol abuse. Patient is counseled. -He has received high-dose IV fluid at 175 cc/h. Will reduce IV fluid to 75 cc/h. -Pain is not well controlled. Will provide Percocet every 6 hours for pain 4 -6 and Dilaudid 1 mg every 4 hours for pain 7-10. -Full liquid diet if he can tolerated. -Use bowel regimen. = Continue IV fluids. Switch to LR. Increase fluid rate. Patient with some constipation. Will order laxatives. =02/21. Order laxatives again. Advance diet as requested. //Hypokalemia. 3.4. Will replace and monitor. =normalized after replacement. //Leukocytosis -Likely reactive. WBC count was 26.9 on admission. Currently 19.5 -CT abdomen pelvis did not show any evidence of necrosis. -However if patient continues to have significant pain and leukocytosis, repeat CT abdomen may be necessary. -CT abdomen pelvis is recommended in 48-72 hours (if needed) - NOT at the time of admission if clinical diagnosis is obvious. -Pain is improving. No need for CT abdomen. Will increase IV fluids. Full code. Heparin SQ. Discharge Planning: hopefully discharge when feeling better.
[2018-02-22] MEDS: HYDROmorphone PF Inj 2 MG/ML Vial IV.PUSH PRN ×3 (00:57→10:21)
[2018-02-22] MEDS: Heparin - SQ 10,000 UNITS/ML Vial SQ SCH (01:00)
[2018-02-22] MEDS: Potassium Chloride Inj 10 MEQ in Dextrose 5%/Lactated Ringer's 1,000 ML IV.CONT SCH (05:24)
[2018-02-22 08:32] VITALS: RESP 16
[2018-02-22] MEDS: Famotidine PF Inj 20 MG/2 ML Vial IV.PUSH SCH (08:54)
[2018-02-22] MEDS: Senna/Docusate Sodium 8.6/50 MG Tablet PO SCH (08:55)
[2018-02-22] MEDS: Sodium Chloride 0.9% 2 ML Flush BID IV.FLUSH SCH (09:03)
--- NOTE | 2018-02-22 15:10 | P.DS ---
Date of admission: 02/17/18 00:50 Primary care physician: No Primary Care Physician Brief History from admission: 38-year-old male with a past medical history of previous pancreatitis presents to the emergency department for evaluation of epigastric pain. The patient reports that the pain started approximately 5:30 PM yesterday evening when he was driving over from [employer]. He endorses associated nausea and vomiting. Denies any fever/chills. No diarrhea. No chest pain or shortness of breath. DS: Summary Hospital Course: Patient treated with aggressive IV fluids and pain control. CT on admission with no acute findings. Patient's pain slowly improved, and patient was discharged home. Advised to avoid any alcohol and follow with primary care.. For problem-based summary from most recent progress note, please see below. On 02/16/2018, Mr. Mann, a 38-year-old male with a history of pancreatitis presented to the emergency department with epigastric pain. 2 days prior to this admission he had a few beers as well as other drinks. On admission his lipase was elevated to 14,831. //Acute on chronic pancreatitis -Likely related to alcohol abuse. Patient is counseled. -He has received high-dose IV fluid at 175 cc/h. Will reduce IV fluid to 75 cc/h. -Pain is not well controlled. Will provide Percocet every 6 hours for pain 4 -6 and Dilaudid 1 mg every 4 hours for pain 7-10. -Full liquid diet if he can tolerated. -Use bowel regimen. = Continue IV fluids. Switch to LR. Increase fluid rate. Patient with some constipation. Will order laxatives. =02/21. Order laxatives again. Advance diet as requested. = Discharge home on low-fat diet. Patient is to avoid alcohol completely. Patient conveys understanding. Follow-up with primary care per //Hypokalemia. 3.4. Will replace and monitor. =normalized after replacement. //Leukocytosis -Likely reactive. WBC count was 26.9 on admission. Currently 19.5 -CT abdomen pelvis did not show any evidence of necrosis. -However if patient continues to have significant pain and leukocytosis, repeat CT abdomen may be necessary. -CT abdomen pelvis is recommended in 48-72 hours (if needed) - NOT at the time of admission if clinical diagnosis is obvious. -Pain is improving. No need for CT abdomen. Will increase IV fluids. = Reactive secondary to pancreatitis, nausea or vomiting. Resolving 14.2 yesterday. Will need to follow-up with primary care. Full code. Heparin SQ. Discharge Planning: Discharge home today. Follow-up with primary care as outpatient. - Time Spent with Patient Total time spent providing and/or coordinating discharge services: Greater than 30 minutes - Quality: VTE Deep Vein Thrombosis/Pulmonary Embolism Present on Admission: No Exam Vital signs: Vital Signs 02/21/18 16:00 02/21/18 20:00 02/21/18 20:03 Temperature 98.6 F 98.8 F Pulse Rate 81 88 Respiratory Rate 17 18 19 Blood Pressure 135/82 153/95 H Pulse Oximetry 96 95 02/21/18 21:07 02/22/18 00:00 02/22/18 01:39 Temperature 98.3 F Pulse Rate 70 Respiratory Rate 19 17 18 Blood Pressure 136/80 Pulse Oximetry 96 02/22/18 02:56 02/22/18 05:27 02/22/18 08:00 Temperature 97.7 F Pulse Rate 68 Respiratory Rate 18 18 16 Blood Pressure 132/68 Pulse Oximetry 97 02/22/18 12:00 Temperature 97.6 F Pulse Rate 84 Respiratory Rate 16 Blood Pressure 139/71 Pulse Oximetry 96 Intake & Output 02/21/18 02/22/18 02/22/18 18:59 06:59 18:59 Intake Total 1245 / 1245 Balance 1245 / 1245 Intake: IV 1005 / 1005 KCl Inj 10 MEQ In D5W/LR Inj 1, 1005 / 1005 000 ML @ 150 mls/hr IV.CONT . Q6H42M [facility] Rx#:[id number] Oral 240 / 240 Other: # Voids 3 4 Date of Last Bowel Movement 02/19/18 02/21/18 02/22/18 # Bowel Movements 0 1 Results Procedures completed during hospitalization: NONE - Impressions ITS Impressions Abdomen/Pelvis CT 02/16/18 23:07 CONCLUSION: 1. Findings consistent with small to moderate pancreatitis, Meet grade C. No evidence for pancreatic necrosis or focal drainable fluid collections. Discharge Plan - Discharge Disposition Patient Disposition: Discharge Home - Discharge Condition Condition: Good - Discharge Order Discharge Orders: Discharge Order (Routine); Ordered 02/22/18 Ordered By: Dennys Mcgee - Discharge Details Anticipated Discharge Date: 02/22/18 - Physicians Team Primary Care Provider: Primary Care Karen Ruvalcaba Attending Provider: Dennys Mcgee
[2018-02-22 16:25] VITALS: BP 151/92; PULSE 87; TEMP 97.2; O2SAT 98
== END 2018-02-22 17:22 | disposition home or self-care (01) ==
LOC: NEPE 19:09 → NEDA 02-17 00:50 → N06 02-17 02:16
PROVIDERS: ADMIT Internal Medicine; ATTEND Internal Medicine